=== PATIENT | female | born 1950 | race Caucasian/White ===

== ENCOUNTER 2017-02-03 07:29 | Inpatient (IN) | payer MEDICARE, OTHER ==
[2017-01-24 12:18] LABS: WBC (NOT ORDERED) (RFLEX) 0 (0-5)
[2017-01-24 12:49] LABS: BASOPHILS 0.2 %; BASOPHILS ABSOLUTE 0.02 10/3/uL (0.0-0.16); EOSINOPHILS 1.9 %; EOSINOPHILS ABSOLUTE 0.17 10/3/uL (0.0-0.53); HEMOGLOBIN 12.9 g/dL (12.0-16.0); IMMATURE GRANULOCYTES 0.9 %; IMMATURE GRANULOCYTES ABSOLUTE 0.08 10/3/uL (0.0-0.11); LYMPHOCYTES 22.3 %; MEAN CORPUS HGB CONC 31.5 g/dL (32.0-36.0); MEAN CORPUSCULAR HEMOGLOB 27.1 pg (26.0-34.0); MEAN CORPUSCULAR VOLUME 86.1 fL (80-100); MEAN PLATELET VOLUME 9.6 fL (9.2-13.0); MONOCYTES ABSOLUTE 0.63 10/3/uL (0.21-1.20); NEUTROPHILS 67.7 %; NEUTROPHILS ABSOLUTE 6.06 10/3/uL (2.02-8.40); PLATELET COUNT 335 10/3/uL (150-400); RBC DISTRIBUTION WIDTH 14.3 % (12.0-16.0); RED CELL COUNT 4.76 10/6/uL (4.0-5.6)
[2017-01-24 12:50] LABS: MANUAL DIFF NO %
[2017-01-24 12:56] LABS: PROTIME (NOT ORD) 13.2 SEC (12.0-14.5)
[2017-01-24 12:57] LABS: PARTIAL THROMBO TIME 29.9 SEC (22.5-37.2)
[2017-01-24 13:08] LABS: ASCORBIC ACID (UR NOT ORDER) NEG (NEG); BILIRUBIN, URINE NEGATIVE (NEG); KETONE, URINE NEGATIVE (NEG); LEUKOCYTE ESTERASE(NOT OR NEG (NEG)
[2017-01-24 13:10] LABS: A/G RATIO 1.5 (0.7-1.9); ALBUMIN 4.2 G/DL (3.5-5.0); ALKALINE PHOSPHATASE 104 U/L (45-117); CHLORIDE, SERUM 111 MMOL/L (96-112); CO2 (CARBON DIOXIDE) 23 MMOL/L (24-34); CREATININE 0.78 MG/DL (0.55-1.02); GFR AFRICAN AMERICAN 91 ML/MIN (>=60); GFR NON AFRICAN AMERICAN 78 ML/MIN (>=60); GLOBULIN 2.8 G/DL (2.5-4.1); POTASSIUM, SERUM 4.6 MMOL/L (3.5-5.3); SGOT(AST) 27 U/L (5-40); SGPT(ALT) 24 U/L (5-65); SODIUM, SERUM 140 MMOL/L (135-148); TOTAL BILIRUBIN 0.3 MG/DL (0-1.2)
[2017-01-24 13:11] LABS: BUN (BLOOD UREA NITROGEN) 11 MG/DL (6-23); GLUCOSE, SERUM 73 MG/DL (60-99)
--- NOTE | ~2017-02-03 | OP ---
Record Of Operation [facility] [address] [place]. 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 Aseptic loosening plus metallosis. PROCEDURE: Revision of hemiarthroplasty to reverse shoulder arthroplasty. SURGEON: Tanya Villatoro M.D. COMPLICATIONS: None. ANESTHESIA: General anesthesia plus regional indwelling block per Anesthesia. ESTIMATED BLOOD LOSS: 150. FLUIDS: 800. INDICATIONS: This 66-year-old female has a history of a heart transplant, which is done quite well for her. She was cleared for surgery. She had a loosening of her hemiarthroplasty, which was done for a fracture years ago. She was in severe pain and wished to proceed with operative intervention. PROCEDURE IN DETAIL: After discussion of risks, benefits, and alternatives of the procedure the patient was induced in the supine position. She was taken to the beach-chair position with care to maintain the cervical lordosis. A time-out protocol was enforced. Ancef was administered. The extensile deltopectoral approach was utilized. We dissected through the subcutaneous tissue immediately encountering the deltopectoral interval. We had lysed the scar under the subdeltoid planes and palpated the coracoid. We used the Yolanda to free up the pocket for the Ambrose. We opened up the subscap, intact it with Ethibond. It was cleared immediately that there was extensive metallosis throughout the tissues with essentially black tissue everywhere. The hemiarthroplasty was completely loose and was easily removed. We removed all the [place] cables as well. The tuberosities were lysed, but I could still palpate some of the greater tuberosity. We brought up the humerus and used a reverse curette to remove the cement in the metallosis. I could palpate the small defect on the medial cortex, but we could get past that after removing a large chunk of cement with osteotomes and I was able to get a 12 reamer down past that. We trialed a long-stem and it seemed to have satisfactory length. We then turned attention back to the glenoid, removed the labrum and again performed extensive debridement with rongeurs throughout the glenohumeral joint removing metallosis Record Of Operation [facility] [id number] [place]. [address] NAME: MARYLOU ANGELA : 46 STATUS : ADM IN PAT#: [id number] AGE: 66 ADM/REG DATE : 02/03/17 MR#: [id number] REPORT SERV DATE: 02/04/17 DICTATED BY: TANYA VILLATORO DATE: 02/03/17 REPORT STATUS : Draft TRANSCRIBED BY: PRAKASH DATE: 02/03/17 and synovitis and scar. There was severe scarring and alteration of surgical planes firstly in the inferior aspect. The subscapularis was scarred to the strap muscles, we carefully lysed that. Eventually, I was able to get through and palpate the axillary nerve and perform a tug test and then we excised the scar, which was blocking reduction between those. We tagged the remnants of the subscap in the greater tuberosity. We used a 15 mm trabecular metal base plate with 42 and 36 mm screw. The bone was somewhat soft, though we got compression and then placed them in locking mode. We impacted the 36 mm glenoid sphere. We then cemented with gentamicin cement making sure to go past the defect in the medial cortex to try to avoid any extrusion, we palpated that. We placed the stem in 20 of retroversion and reduced it with a 0 poly. We then left that harden and then trialed a 0, +3, +6. We selected the +3, which had the best fit. We then repaired with FiberWires through drill hole in the diaphysis, the greater tuberosity and the subscap. Also we repaired these back to the stem with FiberWire to prevent any instability. We placed a medium Hemovac, irrigated copiously with pulsatile lavage, tranexamic acid. The wound was closed in layers. The patient tolerated the procedure well, sent back to stable condition. POSTOPERATIVE PLAN: Sling for six weeks with reverse shoulder protocol. BRITNEY/PRAKASH Tanya Villatoro M.D. / [id number] CC: Tanya Villatoro M.D.
[~2017-02-03 07:29] MED LIST: AMB10 PO; ASA5GR PO; BACTRIM DS PO; BUM1 PO; CALTRA600D PO; CELLCEPT5 PO; COREG3 PO; COREG6 PO; CRESTOR5 MG PO; FLAX SEED; KLOR-CON M1010 MEQ PO; L20 PO; L40 PO; LORTAB 5 PO; MAGOX4 PO; MULTIPLE VIT PO; PEPCID PO; PLETAL100 PO; PREV15 PO; PROGRAF1 PO; SPIRO50 PO; THERGRANM PO; VITAMIN D31000 UNIT PO; ZESTRIL10 MG PO; ZOFRAN4 PO; [UNRECOGNIZED DRUG - OTHER]
[2017-02-04 05:08] LABS: BASOPHILS 0 %; EOSINOPHILS 0 %; HEMATOCRIT 35.3 % (36.0-48.0); HEMOGLOBIN 11.3 g/dL (12.0-16.0); IMMATURE GRANULOCYTES 1.4 %; IMMATURE GRANULOCYTES ABSOLUTE 0.15 10/3/uL (0.0-0.11); LYMPHOCYTES 8.3 %; MANUAL DIFF NO %; MEAN CORPUSCULAR HEMOGLOB 27.5 pg (26.0-34.0); MEAN CORPUSCULAR VOLUME 85.9 fL (80-100); MEAN PLATELET VOLUME 9.5 fL (9.2-13.0); MONOCYTES 6.8 %; MONOCYTES ABSOLUTE 0.74 10/3/uL (0.21-1.20); NEUTROPHILS 83.5 %; NEUTROPHILS ABSOLUTE 9.05 10/3/uL (2.02-8.40); PLATELET COUNT 280 10/3/uL (150-400); RBC DISTRIBUTION WIDTH 13.8 % (12.0-16.0); RED CELL COUNT 4.11 10/6/uL (4.0-5.6); WHITE BLOOD CELLS 10.8 10/3/uL (4.5-10.5)
[2017-02-04 05:26] LABS: CALCIUM, SERUM 8.8 MG/DL (8.5-10.4); CHLORIDE, SERUM 107 MMOL/L (96-112); CO2 (CARBON DIOXIDE) 25 MMOL/L (24-34); CREATININE 0.88 MG/DL (0.55-1.02); GFR AFRICAN AMERICAN 78 ML/MIN (>=60); GFR NON AFRICAN AMERICAN 68 ML/MIN (>=60); POTASSIUM, SERUM 4.4 MMOL/L (3.5-5.3); SODIUM, SERUM 142 MMOL/L (135-148)
[2017-02-04 05:32] LABS: BUN (BLOOD UREA NITROGEN) 15 MG/DL (6-23); GLUCOSE, SERUM 124 MG/DL (60-99)
[2017-02-04] MEDS ORDERED: ASA5GR PO (11:59)
[2017-02-04] MEDS ORDERED: PERCOCET 7.5/321 TAB PO (12:00)
[2017-02-04] MEDS ORDERED: PR25 PO (12:00)
[2017-02-04] MEDS ORDERED: ELIQUIS 2.5 MG2.5 MG PO (12:00)
== END 2017-02-04 13:21 | disposition home or self-care (01) | DRG 483 ==
LOC: SDC/OF 07:29 → PACU 14:32 → 3SO 15:32
PROVIDERS: Orthopaedic Surgery Sports Medicine
PROC: 0RPJ0JZ Removal of Synthetic Substitute from Right Shoulder Joint, Open Approach (ICD-10-PCS; 2017-02-03)
PROC: 0RRJ00Z Replacement of Right Shoulder Joint with Reverse Ball and Socket Synthetic Substitute, Open Approach (ICD-10-PCS; principal; 2017-02-03 09:00)
DX: T84.038A Mechanical loosening of other internal prosthetic joint, initial encounter (principal); Z94.1 Heart transplant status; M81.0 Age-related osteoporosis without current pathological fracture; G47.33 Obstructive sleep apnea (adult) (pediatric); E78.5 Hyperlipidemia, unspecified; Y79.2 Prosthetic and other implants, materials and accessory orthopedic devices associated with adverse incidents; Z96.611 Presence of right artificial shoulder joint; T84.89XA Other specified complication of internal orthopedic prosthetic devices, implants and grafts, initial encounter; Z90.710 Acquired absence of both cervix and uterus; Z87.891 Personal history of nicotine dependence; Z88.0 Allergy status to penicillin; Z87.19 Personal history of other diseases of the digestive system
CPT/HCPCS: 36415; 73030-RT; 80048; 80053; 81001; 83735; 85025; 85610; 85730; 86850; 86900; 86901; 87015; 87070; 87075; 87102; 87116; 87205; 87641; 88300; 88304; 88311; 93005; 97110-GP; 97161-GP; A9270-GY; C1713; C1776; J0690; J2250; J2270; J2370; J2405; J2550; J2710; J2795; J3010; J7507